=== PATIENT | female | born 1935 | race Caucasian/White ===

== ENCOUNTER 2023-10-19 14:20 | Emergency (ER) | payer OTHER, SELFPAY ==
[2023-10-19 14:23] VITALS: BP 171/88
[2023-10-19 15:37] VITALS: BMI 27.3
[2023-10-19 15:48] VITALS: BP 140/72
--- NOTE | 2023-10-19 15:58 | ED.GENMED ---
History of Present Illness
General
Chief Complaint: Swelling
Source: patient
Exam Limitations: none
Time Seen by Provider: 10/19/23 15:11
Nursing documentation reviewed up to this point in time: agreed with
Travel History
Have you had any contact with someone who has COVID-19?: No
Do you have any symptoms of coronavirus? Fever > 100 degrees, chills, cough, shortness of breath, sore throat, loss of taste or smell, muscle aches, or headache?: No
History of Present Illness
History of Present Illness:
87-year-old female with past medical history of A-fib ,hypertension, breast cancer, with bilateral mastectomy presents to the ER for evaluation of lower extremity swelling. Patient has noticed for the past several days her ankles and feet and lower
legs have been swollen. She recently drove from [place] today several hours in the car and the swelling is worse. She complains of redness to the area. She denies any injury. She is on Eliquis for A-fib and does take it but forgot to bring
it with her. She does not feel ill she denies any fever or chills. No prior history of DVT. She denies any chest pain shortness of breath.
She is on amlodipine and reports her doctor increased her dose just several weeks ago.
Review of Systems
Review of Systems
Allergies reviewed?: Yes
All Other Systems: ROS reviewed and negative except as documented in HPI and ROS
Constitutional: Reports no symptoms
Respiratory: Reports no symptoms; Denies trouble breathing
Cardiac: Reports no symptoms
ABD/GI: Reports no symptoms
Musculoskeletal: Reports other (l/e swelling )
Skin: Reports other (redness to b/l legs )
Neurological: Reports no symptoms
Endocrine: Reports no symptoms
Psychiatric: Reports no symptoms
Phy Exam
General Physical Exam
General Presentation: no apparent distress
General age: appears stated age
General Skin: warm and dry
General Habitus: normal
General Mental: alert
General Hydration: appears well hydrated
Neurological Exam
Neurological Exam: alert and oriented x3
Musculoskeletal Exam
Musculoskeletal Exam: other ( b/l l/e mild swelling to feet/ankles with slight erythema to anterior b/l lower legs )
Skin Exam
Skin Exam: normal color and warm/dry
Psychiatric Exam
Psychiatric Exam: normal mood/affect
Scores
Heart Failure Risk
Heart Failure Risk Score: Not Applicable
Course
Orders/Labs/Results
Orders:
Orders
10/19/23 15:52
Complete Blood Count/With Diff Urgent
Comprehensive Metabolic Panel Urgent
10/19/23 15:58
Venous Doppler Lwr Ext Bilat [ Perip Venous LOWER Ext Lonnie] Urgent
Comment:
Reason For Exam: l/e swelling
10/19/23 18:16
Cephalexin Monohydrate [Keflex] 500 mg PO NOW STA
10/19/23 18:47
Apixaban [Eliquis] 5 mg PO NOW STA
Abnormal Lab Results
10/19/23
15:52
RBC 3.69 L 10^6/uL
(4.20-5.40)
Hgb 11.5 L g/dL
(12.0-16.0)
Hct 33.4 L %
(37.0-47.0)
MCH 31.2 H pg
(27.0-31.0)
Absolute Monos (auto) 0.8 H 10^3/uL
(0.1-0.6)
Monocytes % 11.2 H %
(1.7-9.3)
10/19/23 15:52
10/19/23 15:52
Vital Signs
Initial and Last Documented VS:
Initial Vital Signs
Temp Pulse Resp BP Pulse Ox
98.4 F 90 18 171/88 100
10/19/23 14:23 10/19/23 14:23 10/19/23 14:23 10/19/23 14:23 10/19/23 14:23
Last Documented Vital Signs
Temp Pulse Resp BP Pulse Ox
98.4 F 76 14 147/65 96
10/19/23 14:23 10/19/23 18:45 10/19/23 18:45 10/19/23 18:00 10/19/23 18:45
Ad Operations Coordinator consulted with Physician
Ad Operations Coordinator consulted with physician?: Yes
Name of Physician Consulted: Cameron
MDM/Problems Addressed
Differential Diagnosis Includes:
not limited to: Edema,less likely cellulitis
MDM/Problems Addressed:
Patient is an 79-year-old female who has had increasing swelling to bilateral lower extremities. She drove from [place] today in a car swelling slightly increased. She is on anticoagulation for history of A-fib and has not missed a dose but
did forget to bring it with her on this trip and is here until Monday. With regards to the lower extremity swelling she denies any fever or chills. There is minimal swelling to ankles and feet and minimal redness to bilateral lower extremities.
I did do ultrasound which was negative for DVT. She is afebrile has not had any fevers is well-appearing and does not feel ill. Her white count is normal at 7.1 hemoglobin stable 11.5 normal chemistries.
Will still treat with Keflex for possible infection. This swelling may likely be related to amlodipine. This dose was recently increased a couple weeks ago by family doctor. Will have her call her family doctor and follow-up with her doctor for
further management of this
As documented patient drove here from [place] and forgot her Eliquis which she is on for A-fib. Will give one 5 mg dose of Eliquis now and give patient prescription for 5 mg twice a day with enough to last for the next week until she goes back
home.
*Radiology
Radiology exam reviewed: radiology read reviewed
*Pulse Oximetry
Patient hypoxic: no
*Critical Care Note
Total Time (30-74mins, 75-104mins- exclusive of procedures): Not Applicable
ED Attending Note
-
Portions of this chart may have been created with voice recognition software.� Occasional wrong word or��sound alike� substitutions may have occurred due to the inherent limitations of voice recognition software.
Discharge Plan
Departure
Patient Disposition: Home (Routine Discharge)
Date of Disposition: 10/19/23
Time of Disposition: 18:41
Patient with high blood pressure during this ER visit?: Yes
Condition: Fair
Discharge Problem:
Edema of both lower legs, mild cellulitis
Instructions: Dependent Edema (DC), Cellulitis (Skin Infection), Adult (DC), BLOOD PRESSURE
Prescriptions:
New
Eliquis 5 mg tablet
5 mg PO BID Qty: 14 0RF
cephalexin 500 mg capsule
500 mg PO Q6H Qty: 28 0RF
No Action
polyethylene glycol 3350 [Miralax] 17 gram Powder In Packet
17 g PO DAILYPRN PRN (Reason: COSNTIPATION)
atorvastatin [Lipitor] 10 mg Tablet
10 mg PO DAILY
diltiazem HCl 240 mg Capsule,Extended Release 24 Hr
240 mg PO DAILY
Theragen Tablet
1 tab PO DAILY
amlodipine [Norvasc] 5 mg Tablet
5 mg PO DAILY
aspirin 81 mg Tablet,Delayed Release (Dr/Ec)
81 mg PO DAILY
levothyroxine [Synthroid] 100 mcg Tablet
100 mcg PO Q48H
ascorbic acid (vitamin C) [Vitamin C] 500 mg Tablet
500 mg PO DAILY
dicyclomine 10 mg Capsule
10 mg PO AC
levothyroxine [Synthroid] 112 mcg Tablet
112 mcg PO Q48H
cholecalciferol (vitamin D3) [Vitamin D3] 25 mcg (1,000 unit) Tablet
25 mcg PO DAILY
Referrals:
NONE,* [Family Provider] -
Activity Restrictions/Additional Instructions:
As discussed keep legs elevated as much as possible. You were prescribed Keflex, prescription for antibiotic for mild skin infection. Take as directed every 6 hours for the next 7 days. Also as discussed you are given your prescription for
Eliquis 5 mg twice a day. Call your family doctor in the next several days for reevaluation of lower extremity swelling, discuss amlodipine and possibly stopping as this may be contributing to swelling. Return if any worsening of symptoms of
increased pain swelling redness fever chills shortness of breath
Interventions
Interventions:
*Risk Screen - Suicide Last Done: 10/19/23 14:23
*General Assessment Last Done: 10/19/23 14:23
*Neglect/Abuse Screening Last Done: 10/19/23 14:23
ED- Fall Risk Assessment Last Done: 10/19/23 16:34
*ED COVID-19 Vaccine History Last Done: 10/19/23 14:23
*Nursing Disposition Last Done: 10/19/23 19:01
ED- Cardiac Assessment Last Done: 10/19/23 16:31
ED- Pulmonary Assessment Last Done: 10/19/23 16:31
ED-Skin Assessment Last Done: 10/19/23 16:31
Discharge Date and Time
Discharge Date/Time: 10/19/23 19:06
Print Language: [email or web address]
[2023-10-19 15:59] LABS: % Basophils 0.4 % (0-2); % Immature Granulocytes 0.4 % (0-0.5); % Lymphocytes 20.7 % (20.5-51.1); % Monocytes 11.2 % (1.7-9.3); % Neutrophils 65.3 % (42.2-75.2); Absolute Eosinophils 0.1 10^3/uL (0-0.7); Absolute Lymphocytes 1.5 10^3/uL (1.2-3.4); Absolute Monocytes 0.8 10^3/uL (0.1-0.6); Absolute Neutrophils 4.6 10^3/uL (1.4-6.5); Hematocrit 33.4 % (37.0-47.0); Hemoglobin 11.5 g/dL (12.0-16.0); Mean Corp Hgb Conc. 34.4 g/dL (33.0-37.0); Mean Corpuscular Hgb 31.2 pg (27.0-31.0); Mean Corpuscular Volume 90.5 fL (81.0-99.0); Mean Platelet Volume 10.3 fL (7.4-10.4); Nucleated Red Blood Cells % 0 %; Platelet Count 255 10^3/uL (130-400); Red Blood Cell Count 3.69 10^6/uL (4.20-5.40); Red Cell Dist. Width 12.7 % (11.5-14.5); White Blood Cell Count 7.1 10^3/uL (4.8-10.8)
[2023-10-19 16:00] VITALS: BP 139/72
[2023-10-19 16:14] LABS: ALT (SGPT) 13 U/L (0-35); AST (SGOT) 26 U/L (14-36); Alkaline Phosphatase 104 U/L (38-126); Blood Urea Nitrogen 17 mg/dl (7-17); Calcium 9.8 mg/dl (8.4-10.2); Carbon Dioxide 27 mmol/L (22-30); Chloride 103 mmol/L (98-107); Estimated Creatinine Clearance 65 ml/min; Glucose 96 mg/dl (70-99); Potassium 3.9 mmol/L (3.5-5.1); Sodium 136 mmol/L (135-145); Total Bilirubin 0.4 mg/dl (0.2-1.3); Total Protein 6.8 g/dl (6.3-8.2); eGFR > 60.00
[2023-10-19 17:00] VITALS: BP 140/69
[2023-10-19 18:00] VITALS: BP 147/65
[2023-10-19] MEDS: KEFLEX 500 MG PO (18:54)
[2023-10-19] MEDS: ELIQUIS 5 MG PO (18:55)
== END 2023-10-19 19:06 | disposition home or self-care (01) ==
LOC: EMR 14:20
PROVIDERS: Nurse Practitioner; EMERGENCY PHYSICIAN Emergency Medicine
DX: R60.0 Localized edema (principal); L03.116 Cellulitis of left lower limb; L03.115 Cellulitis of right lower limb
CPT/HCPCS: 99283; 80053; 85025; 93970